=== PATIENT | male | born 1995 | race Asian ===

== ENCOUNTER 2023-11-17 09:10 | Emergency (ER) | payer MEDICAID ==
[~2023-11-17] VITALS: Ht 175.3 cm; Wt 106.7 kg
[2023-11-17] MEDS ORDERED: cefTRIAXone SOD 1,000 MG VL IM ONE (10:30)
[2023-11-17] MEDS ORDERED: methylPREDNISolone SOD SUCC 125 MG/2 ML VL IM ONE (10:30)
[2023-11-17] MEDS ORDERED: IBU600T PO (12:10)
[2023-11-17] MEDS ORDERED: AMOX500T3 PO (12:10)
[2023-11-17] MEDS ORDERED: CLIN300C70 PO (12:10)
[2023-11-17] MEDS ORDERED: HYDROcodone-ACET 10/325MG TAB PO ONE (12:15)
[2023-11-17 12:17] VITALS: BP 122/83; PULSE 105; RESP 18; TEMP 98.4; O2SAT 98
== END 2023-11-17 12:23 | disposition home or self-care (01) ==
LOC: ER 09:10
DX: L03.114 Cellulitis of left upper limb (principal)
CPT/HCPCS: 73130; 96372; 99284; J0696; J2930

== ENCOUNTER → 2025-03-10 | Outpatient (CLI) | payer MEDICAID ==
[~2025-03-10] MED LIST: AMOX500T3 PO; CLIN1CAP70 PO; IBU600T PO
== END | disposition home or self-care (01) ==
LOC: Rad HDHVI 09:11
PROVIDERS: ATTEND Internal Medicine Cardiovascular Disease
DX: I47.10 Supraventricular tachycardia, unspecified (principal)
CPT/HCPCS: 93306